=== PATIENT | male | born 1975 | race Caucasian/White ===

== ENCOUNTER → 2017-11-18 | Outpatient (CLI) | payer OTHER ==
[~2017-11-18] MED LIST: DOCU-416 PO; IBUP400T13 PO; PER PO
[2017-11-18 09:25] LABS: PLATELET COUNT, AUTOMATED 235 K/uL (150-450)
== END ==
LOC: LAB 08:52
PROVIDERS: ATTEND Orthopaedic Surgery
DX: Z01.812 Encounter for preprocedural laboratory examination (principal); Z01.810 Encounter for preprocedural cardiovascular examination; Z96.641 Presence of right artificial hip joint; M16.11 Unilateral primary osteoarthritis, right hip
CPT/HCPCS: 36415; 81001; 82040; 82247; 82310; 82374; 82435; 82565; 82947; 84075; 84132; 84155; 84295; 84450; 84460; 84520; 85025; 86850; 86900; 86901